=== PATIENT | male | born 1930 | race Caucasian/White ===

== ENCOUNTER 2019-10-24 13:05 | Outpatient (CLI) | payer MEDICARE | END 2019-10-24 23:59 | disposition home or self-care (01) | LOC: RAD 13:05 | PROVIDERS: ATTEND Internal Medicine Hematology & Oncology | DX: Z45.2 Encounter for adjustment and management of vascular access device (principal); C61 Malignant neoplasm of prostate | CPT/HCPCS: 36573; C1751 ==

== ENCOUNTER 2020-01-02 14:33 | Outpatient (CLI) | payer MEDICARE | END 2020-01-02 23:59 | disposition home or self-care (01) | LOC: RAD 14:33 | PROVIDERS: ATTEND Homeopath | DX: T82.898A Other specified complication of vascular prosthetic devices, implants and grafts, initial encounter (principal); T82.524A Displacement of infusion catheter, initial encounter; C61 Malignant neoplasm of prostate; Y83.8 Other surgical procedures as the cause of abnormal reaction of the patient, or of later complication, without mention of misadventure at the time of the procedure | CPT/HCPCS: 36584; C1751; 77001 ==